=== PATIENT | male | born 1980 | race Caucasian/White ===

== ENCOUNTER 2023-07-10 16:01 | Emergency (ER) | payer MEDICAID, SELFPAY ==
[2023-07-10 16:02] VITALS: BP 161/34; PULSE 110; RESP 20; TEMP 36.8; O2SAT 100; BMI 20.4
--- NOTE | 2023-07-10 16:35 | EKG12_ITS ---
Test Reason : MENTAL HEALTH Blood Pressure : / mmHG Vent. Rate : 083 BPM Atrial Rate : 083 BPM P-R Int : 144 ms QRS Dur : 084 ms QT Int : 372 ms P-R-T Axes : 080 016 062 degrees QTc Int : 437 ms Normal sinus rhythm Normal ECG Confirmed by LEIGHANN FERGUSON, REMI ([id number]), news assignment editor KENIA BONNER ([id number]) on 07/18/2023 10:40:37 AM Referred By: Confirmed By:REMI LAWTON MD
[2023-07-10] MEDS: Ziprasidone IM 20 MG/ML VIAL IM (16:41)
[2023-07-10 17:21] LABS: Absolute Lymphocyte Count 2.59 X10^3/uL (0.83-4.51); Absolute Neutrophil Count 5.3 X10^3/uL (2.0-7.7); Basophil# 0.05 X10^3/uL; Basophil% 0.5 % (0-1); Eosinophil# 0.17 X10^3/uL; Eosinophils% 1.8 % (0-5); Hematocrit 42.5 % (40-54); Hemoglobin 14.3 g/dL (13.0-16.5); Lymphocyte # 2.59 X10^3/ul (0.83-4.51); Lymphocyte % 28.1 % (19-41); Mean Corp Hgb Conc 33.6 g/dL (32-36); Mean Corpuscular Hgb 31.6 pg (27.0-32.0); Monocyte# 1.06 X10^3/uL; Monocyte% 11.5 % (0-10); NRBC Flagged by Analyzer 0 % (0-5); Neutrophil # 5.34 X10^3/uL (2.7-7.7); Neutrophil % 57.9 % (47-70); Platelet Count 413 K/mm3 (150-450); RBC Distribution Width CV 13.4 % (11.6-14.6); RBC Distribution Width SD 46.2 fl (35.1-43.9); Red Blood Count 4.52 M/mm3 (4.6-6.2); White Blood Count 9.2 K/mm3 (4.4-11.0)
--- NOTE | 2023-07-10 17:22 | EDS_ITS ---
HPI <Dr. Woodrow Wallace MD - Last Filed: 07/13/23 13:50> HPI - Psych History of Present Illness Chief Complaint: Mental Health Detail of Chief Complaint: Suicidal ideation, paranoid delusions Informant: police/oiler bander and mental health staff Onset/Context/Timing Onset: - (Uncertain) Context: Unable to determine Conflict: - (Unknown) Timing: - (Unknown) Current Severity: Severe Maximum Severity: Severe Worsened by: - (Unknown) Relieved by: Nothing Associated Symptoms Associated Symptoms - Psych: Positive for Suicidal Thoughts, Easily distracted, Flight of Ideas, Increased activity, Pressured Speech, Agitated and Paranoia Specific plan (suicidal thought): Jump off the bridge Narrative Narrative: Patient is a 43-year-old male with history of bipolar affective disorder who presents to the emergency room after evaluation by certified social workers in health care at the crisis unit. He was brought in by police. He is having paranoid delusions. He believes he is being watched and that the police want to harm him. He was concerned that the injection of Geodon would have DNA particles. He has flight of ideas with tangential thought and pressured speech. He is difficult to redirect. He is disruptive while others are trying to speak to him and explained why he is here. Per old records and per Ligia the slime certified social workers in health care from the crisis center he is noncompliant with his medication. According to Ligia he has not been able to provide his basic needs. He is apparently been wandering at night and is paranoid that someone is trying to get in her stay at his apartment. Prior similar symptoms: Yes Recent Illness/Hospitalization: No PFSH <Dr. Woodrow Wallace MD - Last Filed: 07/13/23 13:50> PFSH Allergy/AdvReac Type Severity Reaction Status Date / Time acetaminophen [From Vicodin] Allergy Rash Verified 07/28/15 02:02 hydrocodone bitartrate Allergy Rash Verified 07/28/15 02:02 [From Vicodin] oxycodone HCl [From Percocet] Allergy Rash Verified 07/28/15 02:02 Social History Smoking Status: Current every day smoker tobacco type: smokeless tobacco ROS <Dr. Woodrow Wallace MD - Last Filed: 07/13/23 13:50> ROS ED Review of Systems ROS Unobtainable: due to mental condition EXAM <Dr. Woodrow Wallace MD - Last Filed: 07/13/23 13:50> Physical Exam Const Vital Signs: 07/10/23 16:02 07/10/23 18:00 07/10/23 21:00 Temperature 98.2 F Temperature Source Temporal Pulse Rate 110 H 66 75 Respiratory Rate 20 H 12 14 Blood Pressure 161/34 H 106/72 Blood Pressure Mean 76 83 Pulse Ox 100 98 99 Oxygen Delivery Method Room Air Room Air Room Air 07/11/23 01:06 07/11/23 01:23 07/11/23 01:35 Temperature Temperature Source Pulse Rate 88 80 89 Respiratory Rate 18 18 18 Blood Pressure 202/121 H 177/102 H 185/106 H Blood Pressure Mean 148 127 132 Pulse Ox 95 99 99 Oxygen Delivery Method Room Air Room Air Room Air 07/11/23 01:59 07/11/23 01:59 07/11/23 02:00 Temperature Temperature Source Pulse Rate 68 64 65 Respiratory Rate 19 H 16 16 Blood Pressure 170/102 H 167/101 H Blood Pressure Mean 124 116 Pulse Ox 99 99 Oxygen Delivery Method Room Air Room Air 07/11/23 02:10 07/11/23 02:20 07/11/23 02:30 Temperature Temperature Source Pulse Rate 81 80 76 Respiratory Rate 19 H 15 23 H Blood Pressure 163/87 H 148/92 H 162/80 H Blood Pressure Mean 109 105 104 Pulse Ox 100 95 Oxygen Delivery Method Room Air Room Air 07/11/23 02:40 07/11/23 02:50 07/11/23 03:00 Temperature Temperature Source Pulse Rate 73 78 88 Respiratory Rate 16 17 20 H Blood Pressure 153/100 H 168/108 H 151/86 H Blood Pressure Mean 114 124 104 Pulse Ox 95 94 93 Oxygen Delivery Method Room Air Room Air 07/11/23 03:10 Temperature Temperature Source Pulse Rate 68 Respiratory Rate 13 Blood Pressure 133/84 H Blood Pressure Mean 99 Pulse Ox 93 Oxygen Delivery Method Room Air Positive well developed, cachectic and unkempt Constitutional Narrative: Patient is agitated. He has pressured speech. He has tangential thought process. There is internal stimulation. General Appearance ED: unkempt, well developed, cachectic and irritable; Negative for pallor Nutritional Appearance: cachectic HEENT Reports moist mucous membranes normocephalic and atraumatic Eyes PERRL and EOMs intact bilaterally General Eye ED: Negative for pale conjunctiva or scleral icterus Neck no lymphadenopathy, supple and no JVD Resp normal respiratory effort and clear to auscultation bilaterally Cardio S1 normal heart sound, S2 normal heart sound and no murmurs Rate: tachycardic Rhythm: regular rhythm GI non-tender, non-distended and no masses Auscultation: normoactive bowel sounds Back/Spine Back/Spine Narrative: Inspection of back is normal. Extremity normal to inspection Neuro CN's II-XII intact bilaterally Neuro Narrative: Patient is awake. [place] Coma Scale: document GCS findings Spontaneous Obeys Commands Confused 14 Motor Exam: strength 5/5 throughout Psych mental status grossly normal and denies homicidal ideation; Negative for thought process normal, cooperative, affect normal, speech normal, activity/motor behavior normal or denies suicidal ideation Appearance: unkempt and bizarre Attitude: paranoid, bizarre, belligerent, agitated and aggressive Activity / Motor Behavior: psychomotor agitation, hyperactive, disorganized and restless Speech: excessive, rapid, loud and pressured Mood & Affect: elevated mood, irritable and labile affect Thought Process: disorganized, flight of ideas and tangential Thought Content: suicidality and delusion(s) Delusional Thought Content Details: Positive for paranoid Attention / Concentration: attention grossly impaired Insight: poor Judgement: poor Skin General Skin Exam: Negative for jaundice or pallor Lesions: no lesions Rashes: no rashes Trauma: Negative for abrasion <Dr. Wade Worrell, DO - Last Filed: 07/11/23 03:55> Physical Exam Const Vital Signs: 07/10/23 16:02 07/10/23 18:00 07/10/23 21:00 Temperature 98.2 F Temperature Source Temporal Pulse Rate 110 H 66 75 Respiratory Rate 20 H 12 14 Blood Pressure 161/34 H 106/72 Blood Pressure Mean 76 83 Pulse Ox 100 98 99 Oxygen Delivery Method Room Air Room Air Room Air 07/11/23 01:06 07/11/23 01:23 07/11/23 01:35 Temperature Temperature Source Pulse Rate 88 80 89 Respiratory Rate 18 18 18 Blood Pressure 202/121 H 177/102 H 185/106 H Blood Pressure Mean 148 127 132 Pulse Ox 95 99 99 Oxygen Delivery Method Room Air Room Air Room Air 07/11/23 01:59 07/11/23 01:59 07/11/23 02:00 Temperature Temperature Source Pulse Rate 68 64 65 Respiratory Rate 19 H 16 16 Blood Pressure 170/102 H 167/101 H Blood Pressure Mean 124 116 Pulse Ox 99 99 Oxygen Delivery Method Room Air Room Air 07/11/23 02:10 07/11/23 02:20 07/11/23 02:30 Temperature Temperature Source Pulse Rate 81 80 76 Respiratory Rate 19 H 15 23 H Blood Pressure 163/87 H 148/92 H 162/80 H Blood Pressure Mean 109 105 104 Pulse Ox 100 95 Oxygen Delivery Method Room Air Room Air 07/11/23 02:40 07/11/23 02:50 07/11/23 03:00 Temperature Temperature Source Pulse Rate 73 78 88 Respiratory Rate 16 17 20 H Blood Pressure 153/100 H 168/108 H 151/86 H Blood Pressure Mean 114 124 104 Pulse Ox 95 94 93 Oxygen Delivery Method Room Air Room Air 07/11/23 03:10 Temperature Temperature Source Pulse Rate 68 Respiratory Rate 13 Blood Pressure 133/84 H Blood Pressure Mean 99 Pulse Ox 93 Oxygen Delivery Method Room Air Neuro [place] Coma Scale: document GCS findings 14 MDM <Dr. Woodrow Wallace MD - Last Filed: 07/13/23 13:50> [facility] MDM Narrative Medical decision making narrative: Patient with paranoid delusions agitated state with flight of ideas and tangential thought process. He was initially medicated with Geodon. He became belligerent and threatening. Law enforcement was recontacted. 2 mg of Haldol and 2 mg of Versed was ordered in addition to what was initially ordered. He was pink slipped. He would benefit from inpatient therapy. Suspect this acute exacerbation is due to noncompliance. History & Record Review Additional record(s) reviewed:: Prior ED visit (Pediatric visit into the office on ) and Prior labs Lab Data Attestation: I reviewed the patient's lab results. Lab results narrative: CBC is normal. The metabolic panel is remarkable for glucose 132 with a normal CO2 anion gap. Talk screen is positive for cannabis. Alcohol is negative. COVID test is now. Labs: Laboratory Results - last 24 hr 07/10/23 07/10/23 16:59 17:00 WBC 9.2 RBC 4.52 L Hgb 14.3 Hct 42.5 MCV 94.0 MCH 31.6 MCHC 33.6 RDW Std Deviation 46.2 H RDW Coeff of Geraldine 13.4 Plt Count 413 MPV 9.0 Immature Gran % (Auto) 0.200 Neut % (Auto) 57.9 Lymph % (Auto) 28.1 Assumption % (Auto) 11.5 H Eos % (Auto) 1.8 Baso % (Auto) 0.5 Absolute Neuts (auto) 5.3 Absolute Lymphs (auto) 2.59 Nucleated RBC % 0 Sodium 137 Potassium 3.7 Chloride 102 Carbon Dioxide 30.0 Anion Gap 5 BUN 16 Creatinine 0.82 Estim Creat Clear Calc 89.70 Est GFR (MDRD) Af Amer 130 Est GFR (MDRD) Non-Af 107 BUN/Creatinine Ratio 19.4 Glucose 132 H Calcium 8.7 Total Bilirubin 0.30 AST 34 ALT 30 Alkaline Phosphatase 77 Total Protein 7.8 Albumin 3.9 Globulin 3.9 Albumin/Globulin Ratio 1.0 Urine Opiates Screen NEGATIVE Urine Methadone Screen NEGATIVE Ur Barbiturates Screen NEGATIVE Ur Phencyclidine Scrn NEGATIVE Ur Amphetamines Screen NEGATIVE MDMA (Ecstasy) Screen NEGATIVE U Benzodiazepines Scrn NEGATIVE Urine Cocaine Screen NEGATIVE U Cannabinoids Screen POSITIVE H Ur Drug Screen Comment Ethyl Alcohol < 3.0 EKG Initial EKG: Attestation: I personally reviewed and interpreted this EKG as follows: Interpretation: Sinus Rhythm (Rate is 83. EKG is normal. WI interval is 144 ms. Cures duration 84 ms. QT durations are 72 ms. [place] is normal) Treatment and Re-Evaluation Narrative: Case was transferred to the [facility] physician Dr. Worrell. He was made aware of patient's presentation. Patient was pink slipped and will require inpatient therapy. <Dr. Wade Worrell, DO - Last Filed: 07/11/23 03:55> [facility] Lab Data Labs: Laboratory Results - last 24 hr 07/10/23 07/10/23 16:59 17:00 WBC 9.2 RBC 4.52 L Hgb 14.3 Hct 42.5 MCV 94.0 MCH 31.6 MCHC 33.6 RDW Std Deviation 46.2 H RDW Coeff of Geraldine 13.4 Plt Count 413 MPV 9.0 Immature Gran % (Auto) 0.200 Neut % (Auto) 57.9 Lymph % (Auto) 28.1 Assumption % (Auto) 11.5 H Eos % (Auto) 1.8 Baso % (Auto) 0.5 Absolute Neuts (auto) 5.3 Absolute Lymphs (auto) 2.59 Nucleated RBC % 0 Sodium 137 Potassium 3.7 Chloride 102 Carbon Dioxide 30.0 Anion Gap 5 BUN 16 Creatinine 0.82 Estim Creat Clear Calc 89.70 Est GFR (MDRD) Af Amer 130 Est GFR (MDRD) Non-Af 107 BUN/Creatinine Ratio 19.4 Glucose 132 H Calcium 8.7 Total Bilirubin 0.30 AST 34 ALT 30 Alkaline Phosphatase 77 Total Protein 7.8 Albumin 3.9 Globulin 3.9 Albumin/Globulin Ratio 1.0 Urine Opiates Screen NEGATIVE Urine Methadone Screen NEGATIVE Ur Barbiturates Screen NEGATIVE Ur Phencyclidine Scrn NEGATIVE Ur Amphetamines Screen NEGATIVE MDMA (Ecstasy) Screen NEGATIVE U Benzodiazepines Scrn NEGATIVE Urine Cocaine Screen NEGATIVE U Cannabinoids Screen POSITIVE H Ur Drug Screen Comment Ethyl Alcohol < 3.0 Treatment and Re-Evaluation Narrative: Case was transferred to the night physician Dr. Worrell. He was made aware of patient's presentation. Patient was pink slipped and will require inpatient therapy. Patient was turned over to pa by Dr. Wallace @ [id number] Brief history: 43-year-old male here with mental health evaluation noted to be decompensated Physical exam: Patient yelling, agitated, not redirectable Labs and images reviewed (if obtained): EKG with normal QTc CBC without leukocytosis, severe anemia, no thrombocytopenia. CMP without evidence of acute kidney injury, significant electrolyte abnormality, anion gap, no evidence hepatobiliary pathology. Urine tox screen positive for THC During the patient's ED course he became agitated threatening to himself, staff required for 400 mg IM ketamine which improved his agitation. Occurred approximately 12:30 AM. Several hours later at approximately 4 AM patient began being agitated again for she required 5 mg of IM Versed, 50 mg IM Benadryl and 20 mg IM Geodon. [place] slip signed. MDM/plan: Continue to treat agitation, continue to monitor, await psychiatric bed Discharge Plan Triage Chief Complaint: Mental Health ED Provider: Woodrow Wallace Dx/Rx/DC Orders Clinical Impression: Aggressive behavior, Suicidal ideation, Psychosis, Paranoid delusion Primary Care Provider: Care Physician,No Primary Referrals: Care Physician,No Primary [Primary Care Provider] - Disposition Disposition: Psychiatric Hospital or Unit Discharge Location: Other Acute Care Hospital Discharge Date/Time: 07/11/23 09:18
[2023-07-10 17:26] LABS: Amphetamine Urine VISTA NEGATIVE (<1000 ng/mL); Barbiturate Urine VISTA NEGATIVE (< 200 ng/mL); Benzodiazepine Urine VISTA NEGATIVE (< 200 ng/mL); Cocaine Urine VISTA NEGATIVE (< 300 ng/mL); Ecstacy Urine VISTA NEGATIVE (< 500 ng/mL); Methadone Urine VISTA NEGATIVE (< 300 ng/mL); PCP Urine VISTA NEGATIVE (< 25 ng/mL); THC Urine VISTA POSITIVE (< 50 ng/mL); Vista UDS pH Range 6
[2023-07-10 17:41] LABS: AST(SGOT) 34 U/L (15-37); Alanine Aminotransfer ALT/SGPT 30 U/L (16-61); Albumin, Serum 3.9 g/dL (3.2-5.0); Alkaline Phosphatase 77 U/L (45-117); Anion Gap 5 (5-15); BUN 16 mg/dL (7-18); BUN/Creat Ratio 19.4 RATIO (10-20); Calcium,Total 8.7 mg/dL (8.5-10.1); Chloride 102 mmol/L (98-107); Creatinine, Serum 0.82 mg/dL (0.70-1.30); EST Glomerular Filtration Rate 107 mL/min (>60); Est Glom Filt Rate - Afr Amer 130 mL/min (>60); Globulin 3.9 g/dL (2.2-4.2); Glucose 132 mg/dL (74-106); Potassium 3.7 mmol/L (3.5-5.1); Protein, Total 7.8 g/dL (6.4-8.2); Sodium Level 137 mmol/L (136-145)
[2023-07-10 17:44] LABS: Alcohol, Blood (Medical)-Serum < 3.0 mg/dL
[2023-07-10 18:00] VITALS: PULSE 66; RESP 12; O2SAT 98
--- NOTE | 2023-07-10 19:36 | CM.ED ---
Social Work Patient arrived with PD and pink slipped by Ligia, Crisis director. Pt recommended for psych placement. Medical clearance completed and faxed to crisis. Crisis to refer patient. Vicki Magdaleno [employer] CLE[employer]ER, [employer]AD[employer]
--- NOTE | 2023-07-10 20:07 | ED.RN ---
nicotine patch, haldol, midazolam not given pt. sleeping, cooperative; provider dr. brooke notified
[2023-07-10 21:00] VITALS: BP 106/72; PULSE 75; RESP 14; O2SAT 99
[2023-07-11] VITALS (13 sets, daily range): BP systolic 111–202; BP diastolic 58–121; PULSE 64–89; RESP 13–23; O2SAT 93–100
[2023-07-11] MEDS: Nicotine Polacrilex 2 MG GUM PO (00:25)
[2023-07-11] MEDS: Ketamine HCl 500 MG/5 ML Vial 400 MG IM (00:52)
--- NOTE | 2023-07-11 01:09 | ED.RN ---
0025 nicotine gum offered, Haldol, and versed; pt. refused Haldol and versed despite yelling and threatening officer/staff. pt. states It's Ramadan its against my religious, pt. reoriented to date and time, not the adan holiday; officer at bedside. provider notified of medication refusal and increasing agitation. 0030 Instructed by provider that medication should be given, and at bedside to discuss with pt. about need for Rx and that it is not against the stated religious. 0040 increasing pt. agitation, yelling, and no longer in get, he removed his gown and entered a fighting position. Officer attempted to deescalate the situation, but pt. threatened to electrocute, and hang himself with wall monitor/ophthalmoscope; once he wrapped cords around his neck more staff and officers were called to the bedside. pt. made another threat to bang his head into the floor and back of bed railing while standing behind the bed. New order for ketamine, entered by dr. simons. d/c instructions for haldol and versed. ketamine given and monitor placed for vital signs, sitter at bedside
[2023-07-11] MEDS: Ziprasidone IM 20 MG/ML VIAL IM (04:00)
[2023-07-11] MEDS: Midazolam 5 MG/ML Syringe IM (04:00)
[2023-07-11] MEDS: DiphenhydrAMINE 50 MG/ML Syringe IM (04:00)
== END 2023-07-11 09:18 ==
PROVIDERS: Emergency Provider Emergency Medicine; Visit Provider Emergency Medicine
DX: F29 Unspecified psychosis not due to a substance or known physiological condition (principal); R45.851 Suicidal ideations; F17.220 Nicotine dependence, chewing tobacco, uncomplicated
CPT/HCPCS: 36415; 80053; 80307; 82077; 85025; 87811; 93005; 96372; 99285; J3486

== ENCOUNTER 2024-07-16 21:16 | Emergency (ER) | payer SELFPAY ==
--- NOTE | 2024-07-16 18:30 | RAD_ITS ---
INDICATION: PAIN EXAMINATION/TECHNIQUE: X-RAY - LEFT XR Foot Min 3 Views 6 VIEWS COMPARISON: No relevant prior comparison study available FINDINGS: SOFT TISSUES: No soft tissue swelling or gas. No radiopaque foreign body. BONES/JOINTS: No acute fracture or subluxation.. Normal alignment. Preservation of the joint space.. No sclerotic or destructive changes observed. RAD/Foot min 3 Views IMPRESSION: 1. No evidence fracture, malalignment or focal bony or joint space abnormality. Electronically Signed: Joes Kwan MD at 22:39 EST ,
[2024-07-16 21:17] VITALS: BP 144/90; PULSE 100; RESP 18; TEMP 36.8; O2SAT 98; BMI 23.3
--- NOTE | 2024-07-16 21:36 | EDS_ITS ---
HPI History of Present Illness HPI Narrative: Patient presents with bilateral foot pain that has been getting worse over the past 2 weeks. Patient states he is homeless and has been doing a lot of walking. Patient describes his pain as stinging. Patient states nothing makes it worse and nothing makes it better. Patient admits to some tingling to his toes. Patient denies any weakness. Patient denies any trauma or injury. Patient denies any fevers or chills. Patient also complains of some mild pain over the medial aspect of his right knee. Patient denies any trauma or injury to his knee. Chief Complaint: Lower Extremity Injury Informant: patient Onset/Context/Timing Onset: Weeks (2) Context: Gradual Onset Timing: Continuous Quality of Pain: - (Stinging) Location: Bilateral feet Worsened by: Nothing Relieved by: Nothing Associated Symptoms Associated Symptoms: Positive for Parasthesia; Negative for Weakness or Loss of Funtion PFSH PFSH Medical History no medical history no medical history Home Medications ?Medication ?Instructions ?Recorded ?Last Taken ?Type NK 07/16/24 Unknown History Allergy/AdvReac Type Severity Reaction Status Date / Time acetaminophen (From Vicodin) Allergy Rash Verified 07/16/24 21:19 hydrocodone bitartrate (From Allergy Rash Verified 07/16/24 21:19 Vicodin) oxycodone HCl (From Percocet) Allergy Rash Verified 07/16/24 21:19 Family History no significant family his Surgical History no surgical history no surgical history Social History Smoking Status: Current every day smoker tobacco type: cigarettes ROS ROS ED Constitutional Constitutional ED: Denies chills or fever(s) Eyes Eyes: Denies blurry vision or change in vision ENT ENT ED: Denies rhinorrhea or sore throat Cardiovascular Cardiovascular: Denies chest pain or palpitations Respiratory/Chest Respiratory/Chest: Denies cough or dyspnea Gastrointestinal Gastrointestinal: Denies nausea or vomiting Genitourinary Genitourinary ED: Denies dysuria or hematuria Musculoskeletal Musculoskeletal: Reports back pain; Denies neck pain Integumentary Denies abscess or rash Neurologic Neurologic: Denies headache(s) or weakness Allergic/Immunologic Allergic/Immunologic ED: Denies mouth swelling or urticaria EXAM Physical Exam Const Vital Signs: 07/16/24 21:17 Temperature 98.3 F Temperature Source Temporal Pulse Rate 100 Respiratory Rate 18 Blood Pressure 144/90 H Blood Pressure Mean 108 Pulse Ox 98 Oxygen Delivery Method Room Air Positive well nourished and well developed General Appearance ED: well developed and NAD HEENT Reports moist mucous membranes Neck full ROM and supple Extremity Extremity Narrative: There is mild tenderness over the feet bilaterally. There is also mild tend erness over the medial aspect of the right knee. There is good range of motion of the right knee and bilateral feet. There is no bony crepitance or step-off. There is no deformity noted. There is no edema or ecchymosis noted. There is no laxity appreciated. Strength is 5/5 bilaterally in the lower extremities. There are no sensory deficits noted. Capillary refills less than 2 seconds in all digits. Pulses are equal bilaterally. Neuro oriented x3, CN's II-XII intact bilaterally, moves all extremities and no sensory deficits noted Sensorium / Orientation: alert Motor Exam: strength 5/5 throughout Skin no wounds MDM MDM MDM Narrative Medical decision making narrative: Differential diagnosis includes fracture, contusion, and sprain. X-rays of the bilateral feet will be obtained to assess for fracture. Radiography Diagnostic Testing: Clinical Impression(s) from Imaging Studies Foot X-Ray 07/16/24 18:30 IMPRESSION: 1. No evidence fracture, malalignment or focal bony or joint space abnormality. Electronically Signed: Jose Kwan MD at 22:39 EST , Foot X-Ray 07/16/24 21:55 IMPRESSION: 1. No evidence fracture, malalignment or focal bony or joint space abnormality. Electronically Signed: Jose Kwan MD at 22:38 EST , X-rays of the right foot were obtained. There are 3 views. On my independent interpretation, there is no acute fracture or dislocation. There is no soft tissue swelling. Radiologist also interpreted the x-rays and agrees. X-rays of the left foot were obtained. There are 3 views. On my independent interpretation, there is no acute fracture. There is no dislocation. There is no soft tissue swelling. Radiologist also interpreted the x-rays and agrees. Treatment and Re-Evaluation Narrative: The feet were cleaned and dried. Patient was instructed to keep his feet clean and dry. Patient was instructed to take Tylenol as needed for pain. Patient was instructed to follow-up with his primary care physician in 5 to 7 days. Patient was instructed return if worse in any way. Patient understood and was agreeable with the plan. All questions were answered. Discharge Plan Triage Chief Complaint: Lower Extremity Injury ED Provider: Abner Farley Dx/Rx/DC Orders Clinical Impression: Bilateral foot pain, Tobacco use Instructions: ED Pain, Acute, Uncertain Cause Prescriptions: No Action NK Primary Care Provider: Care Physician,No Primary Referrals: Care Physician,No Primary [Primary Care Provider] - Abner Sánchez MD [[employer]] - 5-7 Days Activity Restrictions/Additional Instructions: Keep your feet clean and dry. Take Tylenol as needed for pain. Print Language: Greenlandic Disposition Disposition: Home, Self Care Discharge Date/Time: 07/16/24 23:06
--- NOTE | 2024-07-16 21:55 | RAD_ITS ---
INDICATION: Injury/Pain EXAMINATION/TECHNIQUE: X-RAY - RIGHT XR Foot Min 3 Views 3 VIEWS COMPARISON: No relevant prior comparison study available FINDINGS: SOFT TISSUES: No soft tissue swelling or gas. No radiopaque foreign body. BONES/JOINTS: No acute fracture or subluxation.. Normal alignment. Preservation of the joint space.. No sclerotic or destructive changes observed. RAD/Foot min 3 Views IMPRESSION: 1. No evidence fracture, malalignment or focal bony or joint space abnormality. Electronically Signed: Jose Kwan MD at 22:38 EST ,
--- NOTE | 2024-07-16 22:57 | ED.RN ---
Pt stated to this RN that if he is discharged home, he will be going to long-term. Charge nurse notified.
--- NOTE | 2024-07-16 23:05 | ED.RN ---
Pt given discharge paperwork and left peacefully.
== END 2024-07-16 23:06 | disposition home or self-care (01) ==
PROVIDERS: Emergency Provider Emergency Medicine; Visit Provider Emergency Medicine
DX: M79.672 Pain in left foot (principal); M79.671 Pain in right foot; Z59.00 Homelessness unspecified; F17.210 Nicotine dependence, cigarettes, uncomplicated
CPT/HCPCS: 73630; 99282

== ENCOUNTER 2024-09-28 15:30 | Emergency (ER) | payer MEDICAID, SELFPAY ==
[2024-09-28 15:31] VITALS: BP 150/113; PULSE 104; RESP 20; TEMP 36.9; O2SAT 98; BMI 19.7
--- NOTE | 2024-09-28 16:40 | EDS_ITS ---
HPI HPI - Psych History of Present Illness Chief Complaint: Suicidal Informant: patient Narrative Narrative: Patient is a 44-year-old male with history of bipolar affective disorder and paranoid delusions presenting for depression and suicidal ideations. Patient was brought into the ER voluntarily by police stating that he wanted to kill himself going to run into traffic. Patient tells me that he has been having worsening depressive thoughts and suicidal ideations for couple days now. Has a plan he states he put a rope around his neck and run down the street. He tells me that the people that he was living with recently kicked him out and said they were going to kill him if he stayed. He states that they were going to tie him to a chair and make him run down the street. When asked why he thought that he would not specify. While he does report a history of psychiatric diagnoses he states he is not currently on any medications except for high blood pressure. He notes that he currently does not have a place to stay. He admits to tobacco use but denies any alcohol or drug use. He does have thoughts of hurting others but when asked who and why and how he cannot answer these questions. He denies any medical complaints at this time [facility] Medical History (Updated 09/28/24 @ 22:[address] Ita Narayanan, ) Bipolar disorder Allergy/AdvReac Type Severity Reaction Status Date / Time acetaminophen (From Vicodin) Allergy Rash Verified 07/16/24 21:19 hydrocodone bitartrate (From Allergy Rash Verified 07/16/24 21:19 Vicodin) oxycodone HCl (From Percocet) Allergy Rash Verified 07/16/24 21:19 Social History Smoking Status: Current every day smoker tobacco type: cigarettes ROS ROS ED Constitutional Constitutional ED: Denies chills or fever(s) Eyes Eyes: Denies change in vision Respiratory/Chest Respiratory/Chest: Denies cough Gastrointestinal Gastrointestinal: Denies nausea or vomiting Musculoskeletal Musculoskeletal: Denies arthralgias or myalgias Neurologic Neurologic: Denies weakness Psychiatric Psychiatric: Reports anxiety, depression, suicidal ideation and suicidal thoughts EXAM Physical Exam Const Vital Signs: 09/28/24 15:31 09/28/24 17:18 09/28/24 22:39 Temperature 98.4 F 98.2 F Temperature Source Temporal Pulse Rate 104 H 89 70 Respiratory Rate 20 H 20 H 18 Blood Pressure 150/113 H 114/85 H 110/80 Blood Pressure Mean 125 94 90 Pulse Ox 98 96 97 Oxygen Delivery Method Room Air Room Air Positive well developed and unkempt General Appearance ED: unkempt and well developed HEENT Reports moist mucous membranes Eyes PERRL Neck supple Resp normal respiratory effort and clear to auscultation bilaterally Cardio no murmurs Rate: regular rate Rhythm: regular rhythm Extremity normal to inspection General Extremety ED: Negative for edema or tenderness General Extremity: Negative for edema Neuro oriented x3 Sensorium / Orientation: alert Motor Exam: Negative for general weakness Psych Appearance: unkempt Attitude: calm Activity / Motor Behavior: avoids eye contact Speech: normal speech Mood & Affect: depressed Thought Process: loose associations Thought Content: suicidality, homicidality, No delusion(s) and No hallucination(s) Attention / Concentration: attention grossly intact and concentration grossly intact Memory / Cognition: cognition grossly intact Insight: limited Judgement: limited Skin Lesions: no lesions Rashes: no rashes MDM MDM MDM Narrative Medical decision making narrative: Patient is evaluated for suicidal ideations with a plan to wrap a rope around his neck. He reports homicidal ideations but does not provide any further detail. Does have a history of psychiatric disorder and has had prior hospitalizations. Will be evaluated by social work or the counseling center and medically cleared. At this time it does seem that patient would benefit from inpatient psychiatric care especially as he is not currently on any of his psychiatric medications. Patient is medically cleared. Patient is agreeable with admission but is pink slipped prior to transfer. Accepted at [facility] by Dr. Blair. Lab Data Attestation: I reviewed the patient's lab results. Labs: Laboratory Results - last 24 hr 09/28/24 09/28/24 16:00 17:19 WBC 9.3 RBC 4.80 Hgb 15.1 Hct 44.6 MCV 92.9 MCH 31.5 MCHC 33.9 RDW Std Deviation 43.5 RDW Coeff of Geraldine 12.7 Plt Count 366 MPV 9.8 Immature Gran % (Auto) 0.200 Neut % (Auto) 70.7 H Lymph % (Auto) 20.9 [place] % (Auto) 7.2 Eos % (Auto) 0.6 Baso % (Auto) 0.4 Absolute Neuts (auto) 6.6 Absolute Lymphs (auto) 1.94 Nucleated RBC % 0 Sodium 142 Potassium 3.5 Chloride 106 Carbon Dioxide 27.0 Anion Gap 9 BUN 17 Creatinine 1.03 Estim Creat Clear Calc 70.14 Est GFR (MDRD) Af Amer 100 Est GFR (MDRD) Non-Af 83 BUN/Creatinine Ratio 16.5 Glucose 130 H Calcium 9.0 Urine Opiates Screen NEGATIVE Urine Methadone Screen NEGATIVE Ur Barbiturates Screen NEGATIVE Ur Phencyclidine Scrn NEGATIVE Ur Amphetamines Screen NEGATIVE MDMA (Ecstasy) Screen NEGATIVE U Benzodiazepines Scrn NEGATIVE Urine Cocaine Screen NEGATIVE U Cannabinoids Screen NEGATIVE Ur Drug Screen Comment Ethyl Alcohol < 3.0 Discharge Plan Triage Chief Complaint: Suicidal ED Provider: Ita Narayanan Dx/Rx/DC Orders Clinical Impression: Depression with suicidal ideation Primary Care Provider: Care Physician,No Primary Referrals: Care Physician,No Primary [Primary Care Provider] - Print Language: Montenegrin Disposition Disposition: Psychiatric Hospital or Unit Discharge Location: [facility]
[2024-09-28 16:59] LABS: Absolute Lymphocyte Count 1.94 X10^3/uL (0.83-4.51); Absolute Neutrophil Count 6.6 X10^3/uL (2.0-7.7); Basophil# 0.04 X10^3/uL; Basophil% 0.4 % (0-1); Eosinophil# 0.06 X10^3/uL; Eosinophils% 0.6 % (0-5); Hematocrit 44.6 % (40-54); Hemoglobin 15.1 g/dL (13.0-16.5); Lymphocyte # 1.94 X10^3/ul (0.83-4.51); Lymphocyte % 20.9 % (19-41); Mean Corp Hgb Conc 33.9 g/dL (32-36); Mean Corpuscular Hgb 31.5 pg (27.0-32.0); Mean Corpuscular Volume 92.9 fL (80-94); Mean Platelet Vol. 9.8 fl (6.2-12.0); Monocyte# 0.67 X10^3/uL; Monocyte% 7.2 % (0-10); NRBC Flagged by Analyzer 0 % (0-5); Neutrophil # 6.57 X10^3/uL (2.7-7.7); Neutrophil % 70.7 % (47-70); Platelet Count 366 K/mm3 (150-450); RBC Distribution Width CV 12.7 % (11.6-14.6); RBC Distribution Width SD 43.5 fl (35.1-43.9); White Blood Count 9.3 K/mm3 (4.4-11.0)
[2024-09-28 17:18] VITALS: BP 114/85; PULSE 89; RESP 20; O2SAT 96
[2024-09-28 17:25] LABS: Alcohol, Blood (Medical)-Serum < 3.0 mg/dL
[2024-09-28 17:26] LABS: Anion Gap 9 (5-15); BUN 17 mg/dL (7-18); BUN/Creat Ratio 16.5 RATIO (10-20); Chloride 106 mmol/L (98-107); Creatinine, Serum 1.03 mg/dL (0.70-1.30); EST Glomerular Filtration Rate 83 mL/min (>60); Est Glom Filt Rate - Afr Amer 100 mL/min (>60); Estimated Creatinine Clearance 70.14 ml/min; Glucose 130 mg/dL (74-106); Potassium 3.5 mmol/L (3.5-5.1); Sodium Level 142 mmol/L (136-145)
[2024-09-28 17:56] LABS: Amphetamine Urine NEGATIVE (<1000 ng/mL); Barbiturate Urine VISTA NEGATIVE (< 200 ng/mL); Benzodiazepine Urine VISTA NEGATIVE (< 200 ng/mL); Cocaine Urine VISTA NEGATIVE (< 300 ng/mL); Ecstacy Urine VISTA NEGATIVE (< 500 ng/mL); Methadone Urine VISTA NEGATIVE (< 300 ng/mL); PCP Urine VISTA NEGATIVE (< 25 ng/mL); THC Urine VISTA NEGATIVE (< 50 ng/mL); Vista UDS pH Range 5
--- NOTE | 2024-09-28 18:59 | ED.RN ---
I CALLED CRISIS TO REQUEST AN EVALUATION, I FAXED PAPERWORK
--- NOTE | 2024-09-28 19:12 | ED.RN ---
pt stated he takes one medication but does not remember the name, took it this morning.
--- NOTE | 2024-09-28 19:42 | ED.RN ---
MARIANA FROM CRISIS CAME AND EVALUATED, THE PT IS GOING TO BE PLACED, [facility]END[facility] PEGUERO IS FIRST REFERRING FACILITY @194
--- NOTE | 2024-09-28 20:54 | ED.RN ---
Pt. is poor historian. Patient reports taking a medication every morning but does not recall the name of the medication. Unable to complete med rec at this point.
--- NOTE | 2024-09-28 22:08 | ED.RN ---
PT ACCEPTED AT [facility], I CALLED FOR A RIDE THROUGH PHYSICIANS AND THEY GAVE AN ETA OF 0700
--- NOTE | 2024-09-28 22:16 | ED.RN ---
PHYSICANS CALLED AT 859 WITH AN UPDATE SAYING THAT THEY ARE REROUTING A CREW TO OUR FACILITY FOR PT, [facility] IN 1 HOUR; [phone]
[2024-09-28 22:39] VITALS: BP 110/80; PULSE 70; RESP 18; TEMP 36.8; O2SAT 97
== END 2024-09-28 22:55 ==
PROVIDERS: Emergency Provider Emergency Medicine; Visit Provider Emergency Medicine
DX: R45.851 Suicidal ideations (principal); F31.9 Bipolar disorder, unspecified; F17.210 Nicotine dependence, cigarettes, uncomplicated; F41.9 Anxiety disorder, unspecified
CPT/HCPCS: 80048; 80307; 82077; 85025; 99284

== ENCOUNTER 2024-10-07 20:29 | Emergency (ER) | payer MEDICAID, SELFPAY ==
[2024-10-07 20:30] VITALS: BP 142/90; PULSE 117; RESP 18; TEMP 36.8; O2SAT 98; BMI 22.4
[2024-10-07 21:29] VITALS: PULSE 107; RESP 18; O2SAT 97
[2024-10-07 22:00] VITALS: PULSE 99; RESP 20; O2SAT 99
[2024-10-07 22:27] LABS: Absolute Lymphocyte Count 3.19 X10^3/uL (0.83-4.51); Absolute Neutrophil Count 6.4 X10^3/uL (2.0-7.7); Basophil# 0.07 X10^3/uL; Basophil% 0.6 % (0-1); Eosinophil# 0.21 X10^3/uL; Eosinophils% 1.9 % (0-5); Hematocrit 42.4 % (40-54); Hemoglobin 14.6 g/dL (13.0-16.5); Lymphocyte # 3.19 X10^3/ul (0.83-4.51); Lymphocyte % 28.9 % (19-41); Mean Corp Hgb Conc 34.4 g/dL (32-36); Mean Corpuscular Hgb 31.6 pg (27.0-32.0); Mean Corpuscular Volume 91.8 fL (80-94); Mean Platelet Vol. 9.5 fl (6.2-12.0); Monocyte# 1.14 X10^3/uL; Monocyte% 10.3 % (0-10); NRBC Flagged by Analyzer 0 % (0-5); Neutrophil # 6.39 X10^3/uL (2.7-7.7); Platelet Count 322 K/mm3 (150-450); RBC Distribution Width CV 12.9 % (11.6-14.6); RBC Distribution Width SD 43.3 fl (35.1-43.9); Red Blood Count 4.62 M/mm3 (4.6-6.2)
--- NOTE | 2024-10-07 22:34 | EDS_ITS ---
HPI HPI - Psych History of Present Illness Chief Complaint: Suicidal Informant: patient Narrative Narrative: 44-year-old male states he is feeling suicidal and want to jump off a bridge and wants treatment to a psychiatric hospital. Although he is not initially forthcoming about it, he states he was recently admitted to a psychiatric facility, [facility], and he wants to go back there, and he was discharged today. When asked why he wants to go back there if it did not help, he states he does not know. When asked if he talked to them before he left if he did not feel like the treatment was adequate, he basically states he does not know and does not remember what they told him. Denies using any alcohol or drugs. Denies any physical illness or symptoms. [facility] Medical History Bipolar disorder Home Medications ?Medication ?Instructions ?Recorded ?Last Taken ?Type lisinopril 10 mg tablet 10 mg PO DAILY 10/07/24 Unkn own History Allergy/AdvReac Type Severity Reaction Status Date / Time hydrocodone bitartrate (From Allergy Rash Verified 07/16/24 21:19 Vicodin) oxycodone HCl (From Percocet) Allergy Rash Verified 07/16/24 21:19 Social History Smoking Status: Current every day smoker tobacco type: cigarettes ROS ROS ED Constitutional Constitutional ED: Denies chills or fever(s) Eyes Eyes: Denies change in vision or diplopia ENT ENT ED: Denies rhinorrhea or sore throat Cardiovascular Cardiovascular: Denies chest pain or palpitations Respiratory/Chest Respiratory/Chest: Denies cough or dyspnea Gastrointestinal Gastrointestinal: Denies abdominal pain, diarrhea, nausea or vomiting Genitourinary Genitourinary ED: Denies dysuria or hematuria Musculoskeletal Musculoskeletal: Denies back pain or neck pain Integumentary Denies abscess or rash Neurologic Neurologic: Denies headache(s), paresthesias or weakness Psychiatric Psychiatric: Reports depression, suicidal ideation and suicidal thoughts; Denies homicidal ideation EXAM Physical Exam Const Vital Signs: 10/07/24 20:30 10/07/24 21:29 10/07/24 22:00 Temperature 98.2 F Temperature Source Oral Pulse Rate 117 H 107 H 99 Respiratory Rate 18 18 20 H Blood Pressure 142/90 H Blood Pressure Mean 107 Pulse Ox 98 97 99 Oxygen Delivery Method Room Air Room Air Room Air 10/07/24 23:00 10/07/24 23:31 Temperature Temperature Source Pulse Rate 83 87 Respiratory Rate 16 16 Blood Pressure 108/92 H Blood Pressure Mean 97 Pulse Ox 97 99 Oxygen Delivery Method Room Air Room Air Positive well nourished and well developed General Appearance ED: well developed and NAD HEENT Reports moist mucous membranes normocephalic and atraumatic Eyes PERRL and EOMs intact bilaterally General Eye ED: Negative for scleral icterus Neck no lymphadenopathy and supple Resp normal respiratory effort and clear to auscultation bilaterally Cardio no murmurs Rate: regular rate Rhythm: regular rhythm GI non-tender and non-distended Auscultation: normoactive bowel sounds Palpation: soft Back/Spine no CVA tenderness and normal ROM Extremity normal to inspection General Extremety ED: Negative for edema General Extremity: Negative for edema Neuro oriented x3, CN's II-XII intact bilaterally, no sensory deficits noted and gait normal Sensorium / Orientation: alert Motor Exam: strength 5/5 throughout Psych mental status grossly normal, thought process normal, cooperative, activity/motor behavior normal and denies homicidal ideation Mood & Affect: depressed Thought Content: suicidality Skin Lesions: no lesions Rashes: no rashes MDM MDM MDM Narrative Medical decision making narrative: Labs and toxicology reviewed and unremarkable, he is medically cleared for psychiatric evaluation. Discussed with mental health staff, they are in agreement and attempting to place the patient psychiatrically. Lab Data Attestation: I reviewed the patient's lab results. Labs: Laboratory Results - last 24 hr 10/07/24 10/07/24 22:17 22:20 WBC 11.0 RBC 4.62 Hgb 14.6 Hct 42.4 MCV 91.8 MCH 31.6 MCHC 34.4 RDW Std Deviation 43.3 RDW Coeff of Geraldine 12.9 Plt Count 322 MPV 9.5 Immature Gran % (Auto) 0.300 Neut % (Auto) 58.0 Lymph % (Auto) 28.9 [place] % (Auto) 10.3 H Eos % (Auto) 1.9 Baso % (Auto) 0.6 Absolute Neuts (auto) 6.4 Absolute Lymphs (auto) 3.19 Nucleated RBC % 0 Sodium 142 Potassium 4.4 Chloride 105 Carbon Dioxide 31.0 Anion Gap 5 BUN 13 Creatinine 0.88 Estim Creat Clear Calc 93.79 Est GFR (MDRD) Af Amer 119 Est GFR (MDRD) Non-Af 98 BUN/Creatinine Ratio 14.7 Glucose 99 Calcium 9.0 Urine Opiates Screen NEGATIVE Urine Methadone Screen NEGATIVE Ur Barbiturates Screen NEGATIVE Ur Phencyclidine Scrn NEGATIVE Ur Amphetamines Screen NEGATIVE MDMA (Ecstasy) Screen NEGATIVE U Benzodiazepines Scrn NEGATIVE Urine Cocaine Screen NEGATIVE U Cannabinoids Screen NEGATIVE Ur Drug Screen Comment Ethyl Alcohol < 3.0 Management Discussion w/another healthcare provider: plant maintenance worker/Case management Discharge Plan Triage Chief Complaint: Suicidal ED Provider: Michele Brennan Dx/Rx/DC Orders Clinical Impression: Suicidal ideation Prescriptions: No Action lisinopril 10 mg tablet 10 mg PO DAILY Primary Care Provider: Care Physician,No Primary Referrals: Care Physician,No Primary [Primary Care Provider] - Print Language: Hungarian Disposition Disposition: Psychiatric Hospital or Unit
--- NOTE | 2024-10-07 22:37 | ED.RN ---
Unable to accurately obtain pt's med rec. Pt states he does not know what meds he is on. Pt states he takes a pill for high blood pressure and reports taking lexapro but is unsure of dosage.
[2024-10-07 22:41] LABS: Alcohol, Blood (Medical)-Serum < 3.0 mg/dL
[2024-10-07 22:43] LABS: Anion Gap 5 (5-15); BUN 13 mg/dL (7-18); BUN/Creat Ratio 14.7 RATIO (10-20); Chloride 105 mmol/L (98-107); Creatinine, Serum 0.88 mg/dL (0.70-1.30); EST Glomerular Filtration Rate 98 mL/min (>60); Est Glom Filt Rate - Afr Amer 119 mL/min (>60); Estimated Creatinine Clearance 93.79 ml/min; Glucose 99 mg/dL (74-106); Potassium 4.4 mmol/L (3.5-5.1); Sodium Level 142 mmol/L (136-145)
[2024-10-07 22:45] LABS: Amphetamine Urine NEGATIVE (<1000 ng/mL); Barbiturate Urine VISTA NEGATIVE (< 200 ng/mL); Benzodiazepine Urine VISTA NEGATIVE (< 200 ng/mL); Cocaine Urine VISTA NEGATIVE (< 300 ng/mL); Ecstacy Urine VISTA NEGATIVE (< 500 ng/mL); Methadone Urine VISTA NEGATIVE (< 300 ng/mL); Opiates Urine NEGATIVE (< 300 ng/mL); PCP Urine NEGATIVE (< 25 ng/mL); THC Urine VISTA NEGATIVE (< 50 ng/mL); Vista UDS pH Range 5
[2024-10-07 23:00] VITALS: PULSE 83; RESP 16; O2SAT 97
[2024-10-07 23:31] VITALS: BP 108/92; PULSE 87; RESP 16; O2SAT 99
[2024-10-08 07:31] VITALS: BP 109/79; PULSE 69; RESP 16; TEMP 36.7; O2SAT 99
--- NOTE | 2024-10-08 08:00 | ED.RN ---
ACCEPTED AT [facility] AR[facility]IVAL TIME IS 1100AM
== END 2024-10-08 09:31 ==
LOC: ED 22:51
PROVIDERS: Emergency Provider Emergency Medicine; Visit Provider Emergency Medicine
DX: R45.851 Suicidal ideations (principal); F32.A Depression, unspecified; F17.210 Nicotine dependence, cigarettes, uncomplicated
CPT/HCPCS: 80048; 80307; 82077; 85025; 99285